=== PATIENT | female | born 1990 | race Caucasian/White ===

== ENCOUNTER 2017-06-26 18:27 | Emergency (ER) | payer OTHER ==
[~2017-06-26] VITALS: Ht 154.9 cm; Wt 78.9 kg
[2017-06-26] MEDS ORDERED: XANAX1 MG (18:39)
[2017-06-26] MEDS ORDERED: TRIGLIDE160 MG (18:40)
[2017-06-26] MEDS ORDERED: WELLBUTRIN SR100 MG (18:40)
[2017-06-26] MEDS ORDERED: RISPERDAL0.25 MG (18:40)
== END 2017-06-26 21:08 | disposition home or self-care (01) ==
LOC: ER 18:27
DX: F06.4 Anxiety disorder due to known physiological condition (principal)

== ENCOUNTER 2020-04-07 17:39 | Emergency (ER) | payer OTHER ==
[~2020-04-07] VITALS: Ht 154.9 cm; Wt 67.6 kg
[~2020-04-07 17:39] MED LIST: RISPERDAL0.25 MG; TRIGLIDE160 MG; WELLBUTRIN SR100 MG; XANAX1 MG
== END 2020-04-07 20:23 | disposition home or self-care (01) ==
LOC: ER 17:39
DX: J22 Unspecified acute lower respiratory infection (principal); R06.02 Shortness of breath; Z20.828 Contact with and (suspected) exposure to other viral communicable diseases

== ENCOUNTER 2023-03-23 11:20 | Emergency (ER) | payer OTHER ==
[~2023-03-23] VITALS: Ht 154.9 cm; Wt 74.4 kg
[2023-03-23 12:53] LABS: HEMATOCRIT 36.2 % (36.0-45.00); HEMOGLOBIN 12.6 g/dL (12.0-15.00); MEAN CELL VOLUME 92.2 fL (80.00-100.00); MEAN CORPUSCULAR HGB CONC 34.7 g/dl (32.0-36.0); PLATELET COUNT 327 K/uL (150-450); RED BLOOD COUNT 3.92 M/uL (4.00-6.00); RED CELL DISTRIBUTION WIDTH 12.7 % (11.5-14.5)
[2023-03-23 13:01] LABS: ALBUMIN 3.5 gm/dL (3.4-5.0); ALKALINE PHOSPHATASE 98 U/L (50-136); ALT/SGPT 56 U/L (12-78); ANION GAP 10 (10.0-20.0); AST/SGOT 26 U/L (15-37); BILIRUBIN TOTAL 0.39 mg/dL (0.3-1.2); BLOOD UREA NITROGEN 9 mg/dL (7-18); BUN CREA RATIO 10 (7.0-25.0); CALCIUM 9.5 mg/dL (8.5-10.1); CARBON DIOXIDE 28 mEq/L (21-32); CHLORIDE 106 mmol/L (98-107); CREATININE SERUM 0.86 mg/dL (0.55-1.02); GFR 76.96; GLOBULINA 4.4 G/DL (2.4-3.5); GLUCOSE FASTING 146 mg/dL (65-100); OSMOLALITY SERUM 281 MOSM/KG (275-295); POTASSIUM 3.78 mEq/L (3.5-5.1); SODIUM 140 mmol/L (136-145); TOTAL PROTEIN 7.9 gm/dL (6.4-8.2)
[2023-03-23 13:02] LABS: HCG QUANTITATIVE < 1 mUI/mL (1-3)
== END 2023-03-23 14:18 | disposition home or self-care (01) ==
LOC: ER 11:21
PROVIDERS: General Practice
DX: A09 Infectious gastroenteritis and colitis, unspecified (principal); Z20.822 Contact with and (suspected) exposure to COVID-19